=== PATIENT | male | born 1945 | race Caucasian/White ===

== ENCOUNTER → 2018-02-13 | Outpatient (CLI) | payer OTHER | END | disposition home or self-care (01) | LOC: C.LABSPEC 17:09 | PROVIDERS: ATTEND Podiatrist Foot & Ankle Surgery | DX: L97.519 Non-pressure chronic ulcer of other part of right foot with unspecified severity (principal) ==

== ENCOUNTER 2018-02-18 17:02 | Inpatient (IN) | payer OTHER ==
[~2018-02-18] VITALS: Ht 180.3 cm; Wt 115.9 kg
[2018-02-18 18:11] VITALS: BP 136/91; PULSE 90; TEMP 36.9; O2SAT 94; BMI 35.6
[2018-02-18] MEDS ORDERED: ALUMINUM/MAGNESIUM/SIMETH (MAALOX MAX) 30 ML UDC PO PRN (19:45)
[2018-02-18] MEDS ORDERED: POLYETHYLENE (MIRALAX) 17 GM PACK PO PRN (19:45)
[2018-02-18] MEDS ORDERED: LORAZEPAM 0.5 MG TAB PO PRN (19:45)
[2018-02-18] MEDS ORDERED: ACETAMINOPHEN 325 MG TAB PO PRN (19:45)
[2018-02-18] MEDS ORDERED: ONDANSETRON INJ 2 MG/ML 2 ML VIAL IV PRN (19:45)
[2018-02-18] MEDS ORDERED: PATIENT'S ALLERGY INFO NEEDS ENTERED STA (19:52)
[2018-02-18] MEDS ORDERED: MoRPHine SULFATE 4 MG/ML 1 ML CARP\\VIAL IV PRN (20:00)
--- NOTE | 2018-02-18 20:07 | History and Physical ---
History & Physical Date & Time of Service: Feb 18, 2018 at 19:51 Chief Complaint: Right Third Toe Osteomyelitis Primary Care Physician: Taniya Lucero D.O. History of Present Illness There is a first admission had any for the 72-year-old male who comes in with osteo-myelitis of his right distal third toe. This is a diabetic foot infection. He is usually cared for by Dr. Cosme an outpatient MRI did show osteomyelitis involving that toe he gets his care both Dr. Cosme, the [facility], and the family physician in the [place] area. Patient also sees wound care chronically for a open area on his back that was results from previous low back surgery. Patient suffers from Charcot joint of both feet and is wearing podiatric prosthetic devices to walk. Patient's had increasing pain redness and drainage from his right third toe the pain does radiate up to the midfoot he has had no fevers or chills at home he has headaches issues controlling his blood sugar as he is diabetic Preoperatively the patient's had no chest pain pressure shortness of breath orthopnea or previous difficulties with surgery. He has previously had open heart surgery with a aortic valve replacement and mitral valve repair Past Medical/Surgical History Medical Problems: (1) Diabetic foot infection Family History Family history diabetes Social History Smoking Status: Former Smoker Smokeless Tobacco Use: Patient quit smokeless tobacco 30 years ago Review of Systems ROS: well nourished well developed. No double vision blurry vision No problems with speech or swallowing No palpitations, chest pain or pressure No Wheezing or breathing issues No abdominal pain nausea vomiting diarrhea changes in appetite or weight No burning urine urine frequency or changes in color Patient had focal pain to his right third toe with pain to the midfoot redness drainage and swelling No skin rashes or oral lesions No unusual bruising or bleeding No focused back pain or numbness or loss of strength No changes in memory or confusion Physical Exam Vital Signs Date Time Temp Pulse Resp B/P (MAP) Pulse Ox O2 Delivery O2 Flow Rate FiO2 02/18/18 18:11 36.9 90 16 136/91 94 Room Air General Appearance: WD/WN, + mild distress Head: normocephalic, atraumatic Eyes: normal inspection, sclerae normal ENT: hearing grossly normal, pharynx normal Respiratory/Chest: chest non-tender, lungs clear, normal breath sounds Cardiovascular: regular rate, rhythm, no murmur (Although history of valvular repair I hear no murmurs tonight) Abdomen/GI: normal bowel sounds, non tender, soft Back: no CVA tenderness, no muscle spasm, + pertinent finding (There is a deep groove in his lumbar surgical site with an erythematous base with dressing in place which he says he packed with iodoform gauze and sees wound clinic for) Extremities/Musculoskelatal: + pertinent finding (Charcot deformity of both ankles left being worse, his third toe is open on the end with erythema and tenderness) Neurologic/Psych: alert, oriented x 3, + pertinent finding (Patient has no neuropathy according to him) Diagnostics Diagnostic Radiology IMPRESSION: 1. Findings consistent with osteomyelitis of the distal phalanx of the third toe with surrounding cellulitis. No convincing osteomyelitis of the middle phalanx of the third toe. 2. Intraosseous ganglion in the base of the first metatarsal. Questionable nondisplaced fracture associated with the base of the first metatarsal versus reactive degenerative change. Impression Assessment and Plan 72-year-old male with a diabetic foot infection with confirmed osteomyelitis on imaging For the ostomy last patient is on vancomycin and cefepime with renal dose adjustments as needed blood cultures were obtained infectious disease may be involved a PICC line is in the plans for home administration of antibiotics after surgery is done Diabetes, patient states takes Lantus 25 but cannot remember sliding scale he will be given 25 of Lantus in the evening of admission his blood glucose is greater than 300 will continue with sliding scale and carb coverage if he is eating postoperatively will maintain his Lantus to 25 if not will reduce by 50%. Cardiology will continue metoprolol and amiodarone, check ECG restless legs, sinemet, gabapentin mechanical DVT prevention Advanced Directives Existing Living Will: Yes Existing Power of Security Operations Engineer: No Resuscitation Status VTE Prophylaxis Will order VTE Prophylaxis: Yes Reason for no VTE drug order: Contraindicated (Patient on mechanical means due to the fact that surgery is pending)
[2018-02-18] MEDS ORDERED: SODIUM CHLORIDE 0.9% 1000ML 1,000 ML IV SCH (20:30)
[2018-02-18] MEDS ORDERED: VANCOMYCIN CONSULT ACTIVE SCH (20:35)
[2018-02-18 20:44] LABS: BASO % 0.7 %; BASO ABS # 0.06 K/uL (0-0.2); EOS % 2.2 %; EOS ABS # 0.18 K/uL (0-0.5); HEMATOCRIT 45.6 % (42-52); HEMOGLOBIN 15.2 g/dL (14.0-18.0); IG# 0.02 K/uL (0.00-0.02); LYMPH % 22.7 %; LYMPH ABS # 1.83 K/uL (1.2-3.4); MEAN CELL VOLUME 87.4 fL (80-100); MEAN CORPUSCULAR HEMOGLOBIN 29.1 pg (25-34); MEAN CORPUSCULAR HGB CONC 33.3 g/dl (32-36); MEAN PLATELET VOLUME 11.7 fL (7.4-10.4); MONO ABS # 0.81 K/uL (0.11-0.59); NEUT % 64.2 %; NEUT ABS # 5.16 K/uL (1.4-6.5); PLATELET COUNT 311 K/uL (130-400); RED CELL DISTRIBUTION WIDTH CV 13.8 % (11.5-14.5); RED CELL DISTRIBUTION WIDTH SD 44.5 fL (36.4-46.3); WHITE BLOOD COUNT 8.06 K/uL (4.8-10.8)
[2018-02-18] MEDS ORDERED: CEFEPIME CONSULT ACTIVE PRN (20:45)
[2018-02-18] MEDS ORDERED: INSULIN ASPART 100 UNITS/ML 3 ML PEN SC SCH (21:00)
[2018-02-18] MEDS ORDERED: VANCOMYCIN IV 2,750 MG in SODIUM CHLORIDE 0.9% 500ML 500 ML IV SCH (21:00)
[2018-02-18] MEDS ORDERED: DEXTROSE 50% 50 ML SYR IV PRN (21:15)
[2018-02-18] MEDS ORDERED: GLUCAGON FOR INJ 1 MG VIAL SQ PRN (21:15)
[2018-02-18] MEDS ORDERED: GLUCOSE 40% GEL 15 GM TUBE PO PRN (21:15)
[2018-02-18] MEDS ORDERED: GLUCOSE 10 TABS/TUBE PO PRN (21:15)
[2018-02-18 21:24] LABS: CREATININE 1.36 mg/dl (0.60-1.40); POTASSIUM 4.3 mmol/L (3.5-5.1)
[2018-02-18] MEDS: CEFEPIME IV 2,000 MG in SYRINGE 7.5 ML IV SCH (21:24)
[2018-02-18] MEDS: CARBIDOPA/LEVODOPA 25/100MG TAB PO SCH (21:42)
[2018-02-18] MEDS: GABAPENTIN 400 MG CAP PO SCH (21:42)
[2018-02-18] MEDS: INSULIN GLARGINE SOLOSTAR 100 UNITS/ML 3 ML PEN SC SCH (21:50)
[2018-02-18] MEDS: OXYCODONE HCL IR 5 MG TAB (IMMEDIATE RELEASE) PO PRN (21:55)
[2018-02-18] MEDS ORDERED: CEFEPIME IV 2,000 MG in DEXTROSE 5% 100ML 100 ML IV SCH (22:00)
[2018-02-18 22:55] VITALS: BP 144/91; PULSE 84; TEMP 36.5; O2SAT 96
[2018-02-18] MEDS ORDERED: NURSING DECISION MEDICATION ORDER SCH (23:45)
[2018-02-19] VITALS (11 sets, daily range): BP systolic 121–145; BP diastolic 78–93; PULSE 65–78; TEMP 36.4–36.9; O2SAT 93–96; Ht 180.3 cm; Wt 115.9 kg
[2018-02-19] MEDS: OXYCODONE HCL IR 5 MG TAB (IMMEDIATE RELEASE) PO PRN ×2 (03:54→16:17)
[2018-02-19] MEDS: CEFEPIME IV 2,000 MG in SYRINGE 7.5 ML IV SCH ×3 (03:54→21:04)
[2018-02-19] MEDS: INSULIN ASPART 100 UNITS/ML 3 ML PEN SC SCH ×5 (06:00→21:31)
[2018-02-19] MEDS ORDERED: CEFEPIME IV 2,000 MG in SYRINGE 7.5 ML IV SCH (06:00)
[2018-02-19] MEDS: CARBIDOPA/LEVODOPA 25/100MG TAB PO SCH ×2 (07:58→21:05)
[2018-02-19] MEDS: METOPROLOL SUCC 25MG EXT REL TAB PO SCH (07:59)
[2018-02-19] MEDS: AMIODARONE 200 MG TAB PO SCH (07:59)
[2018-02-19] MEDS: GABAPENTIN 400 MG CAP PO SCH ×3 (08:00→21:04)
[2018-02-19 08:27] LABS: HEMATOCRIT 40.6 % (42-52); HEMOGLOBIN 13.8 g/dL (14.0-18.0); MEAN CELL VOLUME 88.6 fL (80-100); MEAN CORPUSCULAR HEMOGLOBIN 30.1 pg (25-34); MEAN PLATELET VOLUME 9.4 fL (7.4-10.4); PLATELET COUNT 292 K/uL (130-400); RED CELL DISTRIBUTION WIDTH CV 13.6 % (11.5-14.5); RED CELL DISTRIBUTION WIDTH SD 43.9 fL (36.4-46.3); WHITE BLOOD COUNT 8.52 K/uL (4.8-10.8)
--- NOTE | 2018-02-19 08:37 | HISTORY & PHYSICAL EXAMINATION ---
DATE OF ADMISSION: 02/18/2018 HISTORY OF PRESENT ILLNESS: A 72-year-old male was seen in my office last evening for cellulitis and osteomyelitis of the third toe. He initially came to me as patient in [facility] from [facility] for [facility]. He had been treated at the [facility] for Charcot arthropathy. At the time of the initial visit, the patient had an ulceration to the distal aspect of the third toe. There has been no radiological evidence, however, we have been waiting for the MRI approval through the [facility] which came through and yesterday showing acute osteomyelitis. The patient was admitted and started on IV antibiotics. Denies fevers, chills and night sweats. He notes increased pain and tenderness the past few days over the third toe. PAST SURGICAL HISTORY: Open heart surgery, aortic valve replacement and mitral valve repair. PAST MEDICAL HISTORY: Hypertension, diabetes mellitus, thyroid, back problems. MEDICATIONS: Per chart. ALLERGIES: No known medical allergies. SOCIAL HISTORY: Smoking history; currently not smoking, had a history of 10 pack years, quit approximately 27 years ago. REVIEW OF SYSTEMS: Unremarkable except chief complaint. PHYSICAL EXAMINATION: VITAL SIGNS: Afebrile. EXTREMITY: Lower extremities, dorsalis pedis pulse on the left 1/4. The right dorsalis pedis and bilateral posterior tibial pulses 0/4 bilaterally. Digital hair is absent. DERMATOLOGIC: There is an ulceration, plantar medial aspect of the left arch which is preulcerative. There is a right third distal ulceration tracking. There is no exposed bone or tendon. Severe erythematous with serous drainage, redness has not crossed the metatarsophalangeal joint area. NEUROLOGIC: Epicritic sensation per [place] monofilament 5.07 absent. MUSCULOSKELETAL: Clinical findings consolidation was stabilization of the fusion involved fragments dislocation, subluxation, consistent with Charcot arthropathy noted. There is a PIPJ contracture noted 2 through 5 and the DIP joint contracture noted to the third right digit. IMAGING: MRI on 02/18/2018 shows findings consistent with osteomyelitis, distal phalanx, third toe, surrounding cellulitis, no convincing evidence of the middle phalanx of the third toe interosseous ganglion and the base of the first metatarsal, a questionable nondisplaced fracture associated with the base of the metatarsal versus reactive changes. LABORATORY DATA: WBC is 8.06. Random glucose is 348 on admission. Creatinine is 1.36. Blood cultures are pending. IMPRESSION: 1. Acute osteomyelitis, right foot. 2. Insulin-dependent diabetes with neuropathy and history of Charcot arthropathy. 3. Coburn grade 2 ulceration, right third digit. 4. Preulcerative area left mid foot. 5. 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 PLAN: Continue IV antibiotics. PICC line will be placed. Appreciate medicine. Consider ID though would recommend 6 weeks of IV antibiotics due to the length of the ulceration that is present even with good clean resection study showed that 6 weeks of IV antibiotics following amputation improve outcomes. The patient is a high risk candidate specifically with peripheral vascular disease, neuropathy and diabetes. The patient will go to the OR today for an amputation of the right third digit. We discussed procedure, risks and complications, reviewed with the patient. Consent form was signed and foot diagram and illustration given in all their entirety. All the patient's questions were answered. Complications were discussed in detail with the patient including pain, infection, swelling that may or may not be excessive, pins and needles feeling, numbness, metatarsalgia, excessive bleeding, delay or nonhealing of bone, delay or nonhealing of skin, enlarged scar, failure of the procedure, recurrence or worsening condition which may or may not require further surgery, adverse reaction to anesthesia, allergic reaction to suture or implant material, loss of toe or foot more proximally and/or leg, transfer lesion, flail toe, short toe, elevated toe, peripheral neurovascular complications such as phlebitis, damage to nerves or vascular structures, significant chronic pain, chronic nerve pain, damage, and general medical complications. The patient will be required to be in a surgery shoe for minimal for 6 weeks and most likely will need a PICC line placed for IV antibiotics during this time. Consent form was signed with a copy of foot diagram issued to the patient. We discussed resection at the PIP joint to assure that there was no further spread of the osteo as well as the continued joint contracture leading to problems in the future. The patient is amenable to this. The patient is commercial correspondent to the OR for an amputation, right third digit at the PIP joint level.
[2018-02-19] MEDS ORDERED: LIDOCAINE HCL 2% 2 ML VIAL (20MG/ML) ONE (08:52)
[2018-02-19] MEDS ORDERED: PROPOFOL IV EMULSION 10 MG/ML 20 ML VIAL IV ONE (08:52)
[2018-02-19] MEDS ORDERED: FENTANYL CITRATE INJ 50 MCG/1 ML 2 ML VIAL ONE (08:52)
[2018-02-19] MEDS ORDERED: MIDAZOLAM HCL 1 MG/ML 2ML VIAL ONE (08:52)
[2018-02-19] MEDS ORDERED: ONDANSETRON INJ 2 MG/ML 2 ML VIAL ONE (08:52)
[2018-02-19] MEDS ORDERED: DEXAMETHASONE SOD INJ 4 MG/ML VIAL ONE (08:52)
[2018-02-19 08:55] LABS: CALCIUM 8.6 mg/dl (8.5-10.1); CREATININE 1.29 mg/dl (0.60-1.40); POTASSIUM 3.7 mmol/L (3.5-5.1)
[2018-02-19] MEDS ORDERED: BACITRACIN 50000 UNIT VIAL ONE (08:56)
[2018-02-19] MEDS ORDERED: BUPIVACAINE 0.5 % 5 MG/1 ML MPF 30ML VIAL ONE (08:57)
[2018-02-19] MEDS ORDERED: FENTANYL CITRATE INJ 50 MCG/1 ML 2 ML VIAL IV PRN (09:15)
[2018-02-19] MEDS ORDERED: ATROPINE SULFATE 0.1 MG/ML 5ML SYR IV PRN (09:15)
[2018-02-19] MEDS ORDERED: EpHEDrine SULFATE INJ 50 MG/ML AMP IV PRN (09:15)
[2018-02-19] MEDS ORDERED: ONDANSETRON INJ 2 MG/ML 2 ML VIAL IV PRN ×2 (09:15→15:30)
--- NOTE | 2018-02-19 09:41 | Pharmacy Progress Note ---
Pharmacy Antibiotic Consult Date of Service: Feb 19, 2018. Pharmacy Dosing Scope Pharmacy is consulted to initiate Vancomycin and cefepime IV dosing therapy, order appropriate labs and adjust drug dose/frequency. Subjective The patient is a 72 year old male admitted on Feb 18, 2018 at 17:50. Objective Height (Feet): 5 Height (Inches): 11.00 Weight (Kilograms): 115.900 Lab Results (24hrs): Test 02/18/18 20:26 02/18/18 23:56 02/19/18 06:02 02/19/18 08:08 White Blood Count 8.06 K/uL (4.8-10.8) 8.52 K/uL (4.8-10.8) Red Blood Count 5.22 M/uL (4.7-6.1) 4.58 M/uL (4.7-6.1) Hemoglobin 15.2 g/dL (14.0-18.0) 13.8 g/dL (14.0-18.0) Hematocrit 45.6 % (42-52) 40.6 % (42-52) Mean Corpuscular Volume 87.4 fL (80-100) 88.6 fL (80-100) Mean Corpuscular Hemoglobin 29.1 pg (25-34) 30.1 pg (25-34) Mean Corpuscular Hemoglobin Concent 33.3 g/dl (32-36) 34.0 g/dl (32-36) Platelet Count 311 K/uL (130-400) 292 K/uL (130-400) Mean Platelet Volume 11.7 fL (7.4-10.4) 9.4 fL (7.4-10.4) Neutrophils (%) (Auto) 64.2 % Lymphocytes (%) (Auto) 22.7 % Monocytes (%) (Auto) 10.0 % Eosinophils (%) (Auto) 2.2 % Basophils (%) (Auto) 0.7 % Neutrophils # (Auto) 5.16 K/uL (1.4-6.5) Lymphocytes # (Auto) 1.83 K/uL (1.2-3.4) Monocytes # (Auto) 0.81 K/uL (0.11-0.59) Eosinophils # (Auto) 0.18 K/uL (0-0.5) Basophils # (Auto) 0.06 K/uL (0-0.2) RDW Standard Deviation 44.5 fL (36.4-46.3) 43.9 fL (36.4-46.3) RDW Coefficient of Variation 13.8 % (11.5-14.5) 13.6 % (11.5-14.5) Immature Granulocyte % (Auto) 0.2 % Immature Granulocyte # (Auto) 0.02 K/uL (0.00-0.02) Sodium Level 133 mmol/L (136-145) 136 mmol/L (136-145) Potassium Level 4.3 mmol/L (3.5-5.1) 3.7 mmol/L (3.5-5.1) Chloride Level 99 mmol/L (98-107) 102 mmol/L (98-107) Carbon Dioxide Level 27 mmol/L (21-32) 28 mmol/L (21-32) Anion Gap 8.0 mmol/L (3-11) 7.0 mmol/L (3-11) Blood Urea Nitrogen 12 mg/dl (7-18) 11 mg/dl (7-18) Creatinine 1.36 mg/dl (0.60-1.40) 1.29 mg/dl (0.60-1.40) Est Creatinine Clear Calc Drug Dose 65.4 ml/min 69.0 ml/min Estimated GFR () 60.7 64.7 Estimated GFR (Non- 52.3 55.8 BUN/Creatinine Ratio 8.8 (10-20) 8.8 (10-20) Random Glucose 348 mg/dl (70-99) 148 mg/dl (70-99) Calcium Level 9.0 mg/dl (8.5-10.1) 8.6 mg/dl (8.5-10.1) Beta-Hydroxybutyric Acid 1.14 mg/dL (0.2-2.81) Bedside Glucose 229 mg/dl (70-99) 140 mg/dl (70-99) Assessment & Plan Assessment 72 [facility]omyelitis/diabetic foot infection. * PMH of DM * Blood cultures pending Plan Vancomycin * Loading dose: 2750mg (23.7mg/kg) IV x 1, then * Maintenance dose: 1750mg (15mg/kg) IV q 16 hours. * Goal trough for osteomyelitis: 15-20mcg/mL * Trough level ordered for 02/21 @1000 Cefepime * 2 gm IV q 8 hours Pharmacy will continue to follow and will adjust dose/frequency as necessary. Thank you
[2018-02-19] MEDS ORDERED: PHENYLEPHRINE HCL INJ 10 MG/ML VIAL ONE (09:56)
--- NOTE | 2018-02-19 10:17 | [facility] Operative Report ---
Operative Report Operative Date Feb 19, 2018. Pre-Operative Diagnosis Osteomyelitis Right third toe Post-Operative Diagnosis Osteomyelitis Right third toe Procedure(s) Performed Amputation Right 3rd Digit Proximal Interphalangeal Joint Right Surgeon Dr. Kothari Pesticide Applicator Surgeon(s) none Estimated Blood Loss < 5 ML Specimens A. Right 3rd toe Cultures: 1. Right third Toe Amputation site 2. Right third Toe Wound Anesthesia Type General I attest to the content of the Intraoperative Record and any orders documented therein. Any exceptions are noted below.
--- NOTE | 2018-02-19 10:39 | OPERATIVE REPORT ---
DATE OF OPERATION: 02/19/2018 SURGEON: Dr. Kothari. PREOPERATIVE DIAGNOSES: 1. Osteomyelitis distal phalanx, right third. 2. Digital contracture right third with clawing. 3. Subluxation right third metatarsophalangeal joint. 4. Cellulitis, right foot. POSTOPERATIVE DIAGNOSES: Same. PROCEDURES: 1. Amputation right third PIP joint level. 2. Metatarsophalangeal joint release, right third. HEMOSTASIS: None. HISTOPATHOLOGY: Specimen sent. Culture of the amp site following irrigation and culture of the wound prior to irrigation. ESTIMATED BLOOD LOSS: Less than 5 mL IRRIGATION: 3000 units with bacitracin. MATERIALS: 2-0 Vicryl, 3-0 nylon. COMPLICATIONS: None. The patient tolerated the procedure and anesthesia well without complications, transported to the recovery room with vital signs stable and neurovascular status intact. PROCEDURE IN DETAIL: The patient was admitted last night and started on empiric antibiotics. Consent was reviewed and all questions were answered. The patient was brought to the OR and placed on the OR table in supine position. Upon completion of general anesthesia by the anesthesia department, a local field block was performed with 30 mL 0.5% Marcaine plain to the forefoot on the right. The foot was scrubbed, prepped and draped in the usual aseptic fashion. Attention was directed to the right third digit where at the proximal phalange joint level, an elliptical incision was made, excising the distal and middle phalanx due to the DIP joint contracture. This was removed from the site in toto. It should be noted that a culture was taken of the wound deep over this area. After its excision, the area was irrigated with 3000 units of normal saline with bacitracin. The metatarsophalangeal joint was released at the MTP joint level, relaxing the remaining proximal interphalangeal joint. Wound was again copiously lavaged. Closure began in the deep structures using 2-0 Vicryl. Superficial deep structures closed using 3-0 nylon. Dry sterile compressive dressing consisting of Adaptic, 4 x 4's, Kerlix and an Nikolay was applied. The patient tolerated the procedure and anesthesia well without complications and was transported to the recovery room with vital signs stable and neurovascular status intact, was readmitted to the floor for continued IV antibiotics. Recommend 6 weeks of IV antibiotics via PICC line, will consult home health to arrange. I attest to the content of the Intraoperative Record and any orders documented therein. Any exception s are noted below.
--- NOTE | 2018-02-19 10:43 | DIAGNOSTIC IMAGING REPORT ---
INTRAOPERATIVE RIGHT THIRD TOE 2 VIEWS CLINICAL HISTORY: Right third toe amputation COMPARISON STUDY: No previous studies for comparison. FINDINGS: 2 intraoperative fluoroscopic spot images are provided for interpretation. 3 seconds of fluoroscopic time was utilized. There are postsurgical changes of an amputation at the level of the proximal interphalangeal joint of the third toe. IMPRESSION: Postsurgical changes of an amputation at the level of the proximal interphalangeal joint. Electronically signed by: Mayank Sapp M.D. 02/19/2018 10:41 AM Dictated Date/Time: 02/19/2018 10:40 AM
--- NOTE | 2018-02-19 11:04 | Anesthesiology Progress Note ---
Anesthesia Post Op Note Date & Time Feb 19, 2018 at 11:04 Vital Signs Pain Intensity: 0 Vital Signs Past 12 Hours Date Time Temp Pulse Resp B/P (MAP) Pulse Ox O2 Delivery O2 Flow Rate FiO2 02/19/18 10:50 65 16 109/78 93 Room Air 02/19/18 10:40 64 19 119/76 100 Oxymask 10 02/19/18 10:30 67 15 124/82 100 Oxymask 10 02/19/18 10:22 36.2 68 18 135/93 100 Oxymask 10 02/19/18 07:43 94 Room Air 02/19/18 07:40 36.5 74 20 121/80 (94) 94 Room Air 02/19/18 07:20 Room Air 02/18/18 23:15 Room Air Notes Mental Status: alert / awake / arousable, participated in evaluation Pt Amnestic to Procedure: Yes Nausea / Vomiting: adequately controlled Pain: adequately controlled Airway Patency, RR, SpO2: stable & adequate BP & HR: stable & adequate Hydration State: stable & adequate Anesthetic Complications: no major complications apparent
[2018-02-19] MEDS: ATORVASTATIN 40 MG TAB PO SCH (11:41)
--- NOTE | 2018-02-19 11:41 | Family Medicine Progress Note ---
Progress Note Date of Service Feb 19, 2018. Subjective Pt evaluation today including: conversation w/ patient, physical exam, chart review, lab review Pain: Well-controlled PO Intake: Good Voiding: no voiding problems Constitutional: No fever, No chills Eyes: No worsening of vision ENT: No hearing loss Respiratory: No cough, No sputum Cardiovascular: No chest pain Abdomen: No pain, No nausea, No vomiting Musculoskeletal: No joint pain Male : No dysuria Psychiatric: No depression symptoms Medications Current Inpatient Medications Medications (Trade) Dose Ordered Sig/Kaur Route Start Time Stop Time Status Last Admin Dose Admin Acetaminophen (Tylenol Tab) 650 mg Q4H PRN PO 02/18/18 19:45 03/20/18 19:44 Al Hydrox/Mg Hydrox/Simethicone (Maalox Max Susp) 15 ml Q4H PRN PO 02/18/18 19:45 03/20/18 19:44 Polyethylene (Miralax Powder Packet) 17 gm DAILY PRN PO 02/18/18 19:45 03/20/18 19:44 Ondansetron HCl (Zofran Inj) 4 mg Q6H PRN IV 02/18/18 19:45 03/20/18 19:44 Lorazepam (Ativan Tab) 0.5 mg Q6 PRN PO 02/18/18 19:45 03/20/18 19:44 Metoprolol Succinate (Toprol Xl Tab) 25 mg QAM PO 02/19/18 09:00 03/21/18 08:59 02/19/18 07:59 25 MG Amiodarone HCl (Cordarone Tab) 100 mg QAM PO 02/19/18 09:00 03/21/18 08:59 02/19/18 07:59 100 MG Gabapentin (Neurontin Cap) 400 mg TID PO 02/18/18 21:00 03/20/18 20:59 02/19/18 13:49 400 MG Carbidopa/Levodopa (Sinemet 25/ 100MG Tab) 1 tab BID PO 02/18/18 21:00 03/20/18 20:59 02/19/18 07:58 1 TAB Atorvastatin Calcium (Lipitor Tab) 40 mg QAM PO 02/19/18 09:00 03/21/18 08:59 02/19/18 11:41 40 MG Insulin Glargine (Lantus Solostar Pen) 25 units QPM SC 02/18/18 21:00 03/20/18 20:59 02/18/18 21:50 25 UNITS Miscellaneous Information (Consult) 1 ea UD N/A 02/18/18 20:35 03/20/18 20:34 Morphine Sulfate (MoRPHine SULFATE INJ) 2 mg Q4H PRN IV 02/18/18 20:00 03/04/18 19:59 02/19/18 15:33 2 MG Morphine Sulfate (MoRPHine SULFATE INJ) 4 mg Q4H PRN IV 02/18/18 20:00 03/04/18 19:59 Oxycodone HCl (Roxicodone Immediate Rel Tab) 10 mg Q6 PRN PO 02/18/18 20:15 03/04/18 20:14 02/19/18 16:17 10 MG Cefepime HCl 2000 mg/Syringe 20 ml @ 5 mls/min Q8@0400,1200,2000 IV 02/18/18 20:39 04/01/18 20:38 02/19/18 11:44 5 MLS/MIN Cefepime HCl (Consult) 1 ea UD PRN N/A 02/18/18 20:45 03/20/18 20:44 Glucose (Glucose 40% Gel) 15-30 GRAMS 15 GRAMS... UD PRN PO 02/18/18 21:15 03/20/18 21:14 Glucose (Glucose Chew Tab) 4-8 Tablets 4 Tabl... UD PRN PO 02/18/18 21:15 03/20/18 21:14 Dextrose (Dextrose 50% 50ML Syringe) 25-50ML OF 50% DW IV FOR... UD PRN IV 02/18/18 21:15 03/20/18 21:14 Glucagon (Glucagon Inj) 1 mg UD PRN SQ 02/18/18 21:15 03/20/18 21:14 Insulin Aspart (novoLOG ASPART) SLIDING SCALE PARAMETER Q6 SC 02/19/18 00:00 03/21/18 00:00 02/19/18 12:38 3 UNITS Vancomycin HCl 1750 mg/Sodium Chloride 535 ml @ 200 mls/hr Q16H IV 02/19/18 10:00 04/01/18 21:59 02/19/18 11:44 200 MLS/HR Ondansetron HCl (Zofran Inj) 4 mg ONE PRN IV 02/19/18 15:30 02/19/18 20:30 Objective Vital Signs Date Time Temp Pulse Resp B/P (MAP) Pulse Ox O2 Delivery O2 Flow Rate FiO2 02/19/18 15:16 36.9 69 18 135/88 (104) 95 Room Air 02/19/18 14:14 36.7 68 20 127/80 (96) 96 Room Air 02/19/18 13:15 36.5 66 22 123/80 (94) 94 Room Air 02/19/18 12:15 36.5 68 16 129/78 (95) 95 Room Air 02/19/18 12:12 36.4 67 18 131/82 (98) 94 Room Air 02/19/18 11:45 36.4 68 20 130/87 (101) 95 Room Air 02/19/18 11:15 Room Air 02/19/18 11:15 36.7 65 18 125/80 (95) 94 Room Air 02/19/18 11:15 Room Air 02/19/18 11:00 36.8 64 16 117/77 97 Room Air 02/19/18 10:50 65 16 109/78 93 Room Air 02/19/18 10:40 64 19 119/76 100 Oxymask 10 02/19/18 10:30 67 15 124/82 100 Oxymask 10 02/19/18 10:22 36.2 68 18 135/93 100 Oxymask 10 02/19/18 07:43 94 Room Air 02/19/18 07:40 36.5 74 20 121/80 (94) 94 Room Air 02/19/18 07:20 Room Air 02/18/18 23:15 Room Air 02/18/18 22:55 36.5 84 18 144/91 (108) 96 Room Air 02/18/18 18:11 36.9 90 16 136/91 94 Room Air Physical Exam General Appearance: WD/WN, no apparent distress Eyes: normal inspection ENT: hearing grossly normal Neck: supple Respiratory/Chest: normal breath sounds, no respiratory distress Cardiovascular: regular rate, rhythm Abdomen: normal bowel sounds, non tender, soft Extremities: no calf tenderness, + pertinent finding (Right lower extremity covered in dressing status post toe amputation) Neurologic/Psychiatric: alert, normal mood/affect, oriented x 3 Laboratory Results 02/19/18 08:08 02/19/18 08:08 Test 02/18/18 20:26 02/19/18 08:08 02/19/18 10:33 Immature Granulocyte % (Auto) 0.2 % White Blood Count 8.06 K/uL (4.8-10.8) Red Blood Count 5.22 M/uL (4.7-6.1) 4.58 M/uL (4.7-6.1) Hemoglobin 15.2 g/dL (14.0-18.0) Hematocrit 45.6 % (42-52) Mean Corpuscular Volume 87.4 fL (80-100) 88.6 fL (80-100) Mean Corpuscular Hemoglobin 29.1 pg (25-34) 30.1 pg (25-34) Mean Corpuscular Hemoglobin Concent 33.3 g/dl (32-36) 34.0 g/dl (32-36) Platelet Count 311 K/uL (130-400) Mean Platelet Volume 11.7 fL (7.4-10.4) 9.4 fL (7.4-10.4) Neutrophils (%) (Auto) 64.2 % Lymphocytes (%) (Auto) 22.7 % Monocytes (%) (Auto) 10.0 % Eosinophils (%) (Auto) 2.2 % Basophils (%) (Auto) 0.7 % Neutrophils # (Auto) 5.16 K/uL (1.4-6.5) Lymphocytes # (Auto) 1.83 K/uL (1.2-3.4) Monocytes # (Auto) 0.81 K/uL (0.11-0.59) Eosinophils # (Auto) 0.18 K/uL (0-0.5) Basophils # (Auto) 0.06 K/uL (0-0.2) Immature Granulocyte # (Auto) 0.02 K/uL (0.00-0.02) Beta-Hydroxybutyric Acid 1.14 mg/dL (0.2-2.81) RDW Standard Deviation 43.9 fL (36.4-46.3) RDW Coefficient of Variation 13.6 % (11.5-14.5) Anion Gap 7.0 mmol/L (3-11) Est Creatinine Clear Calc Drug Dose 69.0 ml/min Estimated GFR () 64.7 Estimated GFR (Non- 55.8 BUN/Creatinine Ratio 8.8 (10-20) Calcium Level 8.6 mg/dl (8.5-10.1) Hepatitis C Antibody Screen NEG (NEG) Bedside Glucose 145 mg/dl (70-99) Assessment and Plan 72-year-old male with a past medical history of diabetic foot ulcer, coronary artery disease presented with confirmed osteomyelitis as evidenced by MRI of his right distal third toe. He underwent amputation of the affected toe this morning. Osteomyelitis of right foot distal third toe: As evidenced on MRI -Status post amputation of right third PIP joint level and metatarsophalangeal joint release, right third. -Blood cultures and wound cultures currently pending - Continue vancomycin and cefepime -He will need antibiotics for 6 weeks and will need a PICC line placement - The patient will be required to be in a surgery shoe for minimal for 6 weeks Diabetes mellitus type 2: Continue Lantus with insulin sliding scale Coronary artery disease: - Continue metoprolol and amiodarone Diabetic neuropathy: Continue gabapentin Restless legs: -Continue Sinemet DVT prophylaxis -SCDs Full code Resident Physician Supervision Note: I interviewed and examined the patient. Discussed with Dr. Templeton and agree with findings and plan as documented in the note. Any exceptions or clarifications are listed here: None Documented By: Farhan Sidhu feeling ok post op wants to do IV abx at home if possible vitals noted nad breathing unlabored foot osteomyelitis - post op and IV abx, ongoing abx based on cultures, ID and podiatry input Resident Tracking Resident Involvement: Resident Care Provided Care Provided: Adult Hospital Medicine
[2018-02-19] MEDS: VANCOMYCIN IV 1,750 MG in SODIUM CHLORIDE 0.9% 500ML 500 ML IV SCH (11:44)
[2018-02-19] MEDS: MoRPHine SULFATE 2 MG/ML CARP IV PRN (15:33)
[2018-02-19] MEDS ORDERED: NURSING DECISION MEDICATION ORDER SCH (17:45)
[2018-02-19] MEDS: INSULIN GLARGINE SOLOSTAR 100 UNITS/ML 3 ML PEN SC SCH (21:32)
[2018-02-20] MEDS: OXYCODONE HCL IR 5 MG TAB (IMMEDIATE RELEASE) PO PRN ×4 (00:18→23:52)
[2018-02-20] MEDS: VANCOMYCIN IV 1,750 MG in SODIUM CHLORIDE 0.9% 500ML 500 ML IV SCH ×2 (02:30→18:26)
[2018-02-20 03:35] VITALS: BP 101/65; PULSE 62; TEMP 36.4; O2SAT 94
[2018-02-20] MEDS: CEFEPIME IV 2,000 MG in SYRINGE 7.5 ML IV SCH ×3 (05:16→20:19)
[2018-02-20 07:25] VITALS: BP 142/80; PULSE 61; TEMP 36.4; O2SAT 97
--- NOTE | 2018-02-20 08:17 | PROGRESS NOTE ---
DATE: 02/20/2018 SUBJECTIVE: The patient seen at bedside postoperative day 1. He notes mild amount of pain, it is controllable. Currently nonambulatory, waiting the surgery shoe. OBJECTIVE: VITAL SIGNS: Stable and afebrile. EXTREMITIES: Lower extremity edema noted over the amputation site. Digital pulse nonpalpable on the right lower extremity secondary to the edema. DERMATOLOGIC: Sutures intact. Erythema improved. Mild serosanguineous drainage noted from the operative site. NEUROLOGIC: Epicritic sensation per [place] monofilament decreased MUSCULOSKELETAL: Amputation right third digit PIP joint level. LABORATORY DATA: OR cultures pending. Blood culture no growth to date. WBC is within normal limits on 02/19/2018. IMPRESSION: 1. Status post I&D, amputation right third PIP joint level, MTPJ release, right third digit postoperative day 1. 2. Cellulitis, right foot, improved. TREATMENT: Continue IV antibiotics, awaiting placement of PICC line and approval for IV antibiotics. Spoke with pharmacy yesterday regarding the dosing of the vancomycin. Awaiting peak and trough levels and more finalized empiric culture results. Stop date on the IV antibiotics April 02. Long discussion at bedside regarding 6 weeks of IV antibiotics with the patient. The patient is awaiting home IV infusion. We will work with the NH today to get this approved, then we will dispense a surgery shoe to bedside for ambulation purposes.
[2018-02-20] MEDS: AMIODARONE 200 MG TAB PO SCH (08:55)
[2018-02-20] MEDS: ATORVASTATIN 40 MG TAB PO SCH (08:55)
[2018-02-20] MEDS: INSULIN ASPART 100 UNITS/ML 3 ML PEN SC SCH ×4 (08:56→21:07)
[2018-02-20] MEDS: METOPROLOL SUCC 25MG EXT REL TAB PO SCH (08:57)
[2018-02-20] MEDS: GABAPENTIN 400 MG CAP PO SCH ×3 (08:57→21:09)
[2018-02-20] MEDS: CARBIDOPA/LEVODOPA 25/100MG TAB PO SCH ×2 (08:57→21:09)
[2018-02-20 09:07] LABS: CALCIUM 8.5 mg/dl (8.5-10.1); CREATININE 1.26 mg/dl (0.60-1.40); POTASSIUM 4.1 mmol/L (3.5-5.1)
--- NOTE | 2018-02-20 10:55 | Medical Consult ---
Consultation Date of Consultation: Feb 20, 2018. Attending Physician: Farhan Sidhu D.O. Reason for Consultation: Osteomyelitis History of Present Illness 72-year-old male with longstanding diabetes mellitus with severe diabetic peripheral neuropathy, Charcot changes in both feet, who has been followed by Podiatry for nonhealing ulceration of his right 3rd toe. Over the last week or so, patient noted increasing redness, swelling, and drainage, and MRI was obtained showing osteomyelitis of the toe. Yesterday, patient underwent amputation of the right 3rd toe. Operative Gram stain is negative, cultures are pending. Patient currently being treated with IV vancomycin. He has not had associated fever or chills. Pain currently 3/10 intensity right foot. Past Medical/Surgical History Medical Problems: (1) Diabetic foot infection PAST SURGICAL HISTORY: Open heart surgery, aortic valve replacement and mitral valve repair. PAST MEDICAL HISTORY: Hypertension, diabetes mellitus, thyroid, back problems Family History Noncontributory Social History Smoking Status: Former Smoker Smokeless Tobacco Use: Patient quit smokeless tobacco 30 years ago Allergies Coded Allergies: No Known Allergies (Unverified , 02/18/18) Current Inpatient Medications Current Inpatient Medications Medications (Trade) Dose Ordered Sig/Kaur Route Start Time Stop Time Status Last Admin Dose Admin Acetaminophen (Tylenol Tab) 650 mg Q4H PRN PO 02/18/18 19:45 03/20/18 19:44 Al Hydrox/Mg Hydrox/Simethicone (Maalox Max Susp) 15 ml Q4H PRN PO 02/18/18 19:45 03/20/18 19:44 Polyethylene (Miralax Powder Packet) 17 gm DAILY PRN PO 02/18/18 19:45 03/20/18 19:44 Ondansetron HCl (Zofran Inj) 4 mg Q6H PRN IV 02/18/18 19:45 03/20/18 19:44 Lorazepam (Ativan Tab) 0.5 mg Q6 PRN PO 02/18/18 19:45 03/20/18 19:44 Metoprolol Succinate (Toprol Xl Tab) 25 mg QAM PO 02/19/18 09:00 03/21/18 08:59 02/20/18 08:57 25 MG Amiodarone HCl (Cordarone Tab) 100 mg QAM PO 02/19/18 09:00 03/21/18 08:59 02/20/18 08:55 100 MG Gabapentin (Neurontin Cap) 400 mg TID PO 02/18/18 21:00 03/20/18 20:59 02/20/18 08:57 400 MG Carbidopa/Levodopa (Sinemet 25/ 100MG Tab) 1 tab BID PO 02/18/18 21:00 03/20/18 20:59 02/20/18 08:57 1 TAB Atorvastatin Calcium (Lipitor Tab) 40 mg QAM PO 02/19/18 09:00 03/21/18 08:59 02/20/18 08:55 40 MG Insulin Glargine (Lantus Solostar Pen) 25 units QPM SC 02/18/18 21:00 03/20/18 20:59 02/19/18 21:32 25 UNITS Miscellaneous Information (Consult) 1 ea UD N/A 02/18/18 20:35 03/20/18 20:34 Morphine Sulfate (MoRPHine SULFATE INJ) 2 mg Q4H PRN IV 02/18/18 20:00 03/04/18 19:59 02/19/18 15:33 2 MG Morphine Sulfate (MoRPHine SULFATE INJ) 4 mg Q4H PRN IV 02/18/18 20:00 03/04/18 19:59 02/19/18 20:15 4 MG Oxycodone HCl (Roxicodone Immediate Rel Tab) 10 mg Q6 PRN PO 02/18/18 20:15 03/04/18 20:14 02/20/18 07:03 10 MG Cefepime HCl 2000 mg/Syringe 20 ml @ 5 mls/min Q8@0400,1200,2000 IV 02/18/18 20:39 04/01/18 20:38 02/20/18 05:16 5 MLS/MIN Cefepime HCl (Consult) 1 ea UD PRN N/A 02/18/18 20:45 03/20/18 20:44 Glucose (Glucose 40% Gel) 15-30 GRAMS 15 GRAMS... UD PRN PO 02/18/18 21:15 03/20/18 21:14 Glucose (Glucose Chew Tab) 4-8 Tablets 4 Tabl... UD PRN PO 02/18/18 21:15 03/20/18 21:14 Dextrose (Dextrose 50% 50ML Syringe) 25-50ML OF 50% DW IV FOR... UD PRN IV 02/18/18 21:15 03/20/18 21:14 Glucagon (Glucagon Inj) 1 mg UD PRN SQ 02/18/18 21:15 03/20/18 21:14 Vancomycin HCl 1750 mg/Sodium Chloride 535 ml @ 200 mls/hr Q16H IV 02/19/18 10:00 04/01/18 21:59 02/20/18 02:30 200 MLS/HR Insulin Aspart (novoLOG ASPART) SLIDING SCALE PARAMETER ACHS SC 02/19/18 21:00 03/21/18 00:00 02/20/18 08:56 8 UNITS Review of Systems All systems were reviewed and are negative except as per HPI Physical Exam Date Time Temp Pulse Resp B/P (MAP) Pulse Ox O2 Delivery O2 Flow Rate FiO2 02/20/18 07:25 36.4 61 18 142/80 (100) 97 Room Air 02/20/18 07:00 Room Air 02/20/18 03:35 36.4 62 16 101/65 (77) 94 Room Air 02/20/18 00:15 Room Air 02/19/18 23:10 36.6 78 18 141/87 (105) 93 Room Air 02/19/18 19:30 36.9 78 18 145/93 (110) 95 Room Air 02/19/18 15:28 Room Air 02/19/18 15:16 36.9 69 18 135/88 (104) 95 Room Air 02/19/18 14:14 36.7 68 20 127/80 (96) 96 Room Air 02/19/18 13:15 36.5 66 22 123/80 (94) 94 Room Air 02/19/18 12:15 36.5 68 16 129/78 (95) 95 Room Air 02/19/18 12:12 36.4 67 18 131/82 (98) 94 Room Air 02/19/18 11:45 36.4 68 20 130/87 (101) 95 Room Air 02/19/18 11:15 Room Air 02/19/18 11:15 36.7 65 18 125/80 (95) 94 Room Air 02/19/18 11:15 Room Air 02/19/18 11:00 36.8 64 16 117/77 97 Room Air General Appearance: WD/WN, no apparent distress Head: normocephalic, atraumatic Eyes: normal inspection, EOMI, sclerae normal ENT: normal ENT inspection, hearing grossly normal, pharynx normal Neck: supple, no adenopathy, thyroid normal, trachea midline Respiratory/Chest: chest non-tender, lungs clear, normal breath sounds, no respiratory distress Cardiovascular: regular rate, rhythm, no gallop, no murmur Abdomen/GI: normal bowel sounds, non tender, soft, no organomegaly Back: normal inspection, no CVA tenderness Extremities/Musculoskelatal: no calf tenderness, normal capillary refill, non- tender Neurologic/Psych: alert, oriented x 3, + sensory deficit (Both lower extremities) Skin: normal color, warm/dry, no rash, + pertinent finding (Surgical dressing intact right foot) Lymphatic: no adenopathy Laboratory Results RUN DATE: 02/19/18 [facility] LAB PAGE 1 RUN TIME: 1211 Specimen Inquiry PATIENT: LARRY DELUNA LOC: [facility] U # : [id number] AGE/SX: 72/M ROOM: [facility] REG : 02/18/[address]: Farhan Sidhu D.O. : 1945 BED: 1 DIS : STATUS: ADM IN TLOC: SPEC #: [id number] GORD[place]: 02/19/18 STATUS: RES REQ #: [id number] RECD: 02/19/[address] [facility] [address]: Pavithra Kothari D.P.MSarah SOURCE: DRAIN-DEEP ENTR: 02/19/[address]: Trevon Pedraza M.D. SPDESC: TOE R3 Taniya Lucero D.O., Ryan, D.O. ORDERED: AER/ALISON CULTSMR COMMENTS: CULTURE #1 RIGHT THIRD TOE AMPUTATION SITE Procedure Result Verified Site GRAM STAIN Final 02/19/181211 RESULT MODERATE WBCs SEEN NO ORGANISMS SEEN OR AER/ALISON CULT Results Pending Last 24 Hours Test 02/19/18 12:09 02/19/18 17:13 02/19/18 20:29 02/20/18 07:50 Bedside Glucose 203 mg/dl 293 mg/dl 263 mg/dl Sodium Level 133 mmol/L Potassium Level 4.1 mmol/L Chloride Level 100 mmol/L Carbon Dioxide Level 27 mmol/L Anion Gap 6.0 mmol/L Blood Urea Nitrogen 13 mg/dl Creatinine 1.26 mg/dl Est Creatinine Clear Calc Drug Dose 70.6 ml/min Estimated GFR () 66.5 Estimated GFR (Non- 57.4 BUN/Creatinine Ratio 10.5 Random Glucose 218 mg/dl Calcium Level 8.5 mg/dl Chemistry Specimen Hemolysis Test 02/20/18 08:06 Bedside Glucose 198 mg/dl Patient Name: LARRY DELUNA Unit Number: [id number] Dictated: 02/19/181039 Transcribed: 02/19/181039 ARG Printed Date/Time: [~ rep prt dt]/[~ rep prt tm] [~ rep ct labl] - [~ rep ct ivnm] [facility] Radiology Department [place], [place] [id number] Dictated: 02/19/181039 Transcribed: 02/19/181039 ARG Printed Date/Time: [~ rep prt dt]/[~ rep prt tm] [~ rep ct labl] - [~ rep ct ivnm] [~ rep ct add3]] INTRAOPERATIVE RIGHT THIRD TOE 2 VIEWS CLINICAL HISTORY: Right third toe amputation COMPARISON STUDY: No previous studies for comparison. FINDINGS: 2 intraoperative fluoroscopic spot images are provided for interpretation. 3 seconds of fluoroscopic time was utilized. There are postsurgical changes of an amputation at the level of the proximal interphalangeal joint of the third toe. IMPRESSION: Postsurgical changes of an amputation at the level of the proximal interphalangeal joint. Electronically signed by: Mayank Sapp M.D. 02/19/2018 10:41 AM Dictated Date/Time: 02/19/2018 10:40 AM The status of this report is Signed. Draft = Not yet reviewed or approved by Radiologist. Signed = Reviewed and approved by Radiologist. <AttendingPhy>Thea, Farhan, D.O.</AttendingPhy> <FamilyPhy>Taniya Lucero D.O.</FamilyPhy> <PrimaryPhy>Taniya Lucero D.O.</PrimaryPhy> <UnitNumber> [id number]</UnitNumber> <VisitNumber>[id number]</VisitNumber> <PatientName> LARRY DELUNA</PatientName> <DateOfBirth>1945</DateOfBirth> <Location> [facility]</Location> <ServiceDate></ServiceDate> <MNE>ESINDI</MNE> <OrderingPhy> Pavithra Kothari D.P.M.</OrderingPhy> <OrderingPhyMNE>f rep ord dr villegas</ OrderingPhyMNE> <DictatingPhyMNE>f rep dict dr villegas</DictatingPhyMNE> <CCListMNE> f rep ct mne</CCListMNE> <AdmittingPhyMNE>f pt admit dr villegas</AdmittingPhyMNE> < AttendingPhyMNE>f pt attend dr villegas</AttendingPhyMNE> <ConsultingPhyMNE>f pt consult dr villegas</ConsultingPhyMNE> <FamilyPhyMNE>f pt fam dr villegas</FamilyPhyMNE> <OtherPhyMNE>f pt other dr villegas</OtherPhyMNE> < PrimaryPhyMNE>f pt prim care dr villegas</PrimaryPhyMNE> <ReferringPhyMNE>f pt referring dr villegas</ReferringPhyMNE> Assessment & Plan 72-year-old male with osteomyelitis of the right 3rd toe now status post amputation in the setting of diabetes mellitus and severe peripheral neuropathy and Charcot changes. Agree with plans for prolonged IV antibiotics, choice to be determined by culture results. Hopefully can find a once daily alternative. Will need PICC line. Will follow.
--- NOTE | 2018-02-20 14:31 | Family Medicine Progress Note ---
Progress Note Date of Service Feb 20, 2018. Subjective Pt evaluation today including: conversation w/ patient, physical exam, chart review, lab review Medications Current Inpatient Medications Medications (Trade) Dose Ordered Sig/Kaur Route Start Time Stop Time Status Last Admin Dose Admin Acetaminophen (Tylenol Tab) 650 mg Q4H PRN PO 02/18/18 19:45 03/20/18 19:44 Al Hydrox/Mg Hydrox/Simethicone (Maalox Max Susp) 15 ml Q4H PRN PO 02/18/18 19:45 03/20/18 19:44 Polyethylene (Miralax Powder Packet) 17 gm DAILY PRN PO 02/18/18 19:45 03/20/18 19:44 Ondansetron HCl (Zofran Inj) 4 mg Q6H PRN IV 02/18/18 19:45 03/20/18 19:44 Lorazepam (Ativan Tab) 0.5 mg Q6 PRN PO 02/18/18 19:45 03/20/18 19:44 Metoprolol Succinate (Toprol Xl Tab) 25 mg QAM PO 02/19/18 09:00 03/21/18 08:59 02/20/18 08:57 25 MG Amiodarone HCl (Cordarone Tab) 100 mg QAM PO 02/19/18 09:00 03/21/18 08:59 02/20/18 08:55 100 MG Gabapentin (Neurontin Cap) 400 mg TID PO 02/18/18 21:00 03/20/18 20:59 02/20/18 21:09 400 MG Carbidopa/Levodopa (Sinemet 25/ 100MG Tab) 1 tab BID PO 02/18/18 21:00 03/20/18 20:59 02/20/18 21:09 1 TAB Atorvastatin Calcium (Lipitor Tab) 40 mg QAM PO 02/19/18 09:00 03/21/18 08:59 02/20/18 08:55 40 MG Insulin Glargine (Lantus Solostar Pen) 25 units QPM SC 02/18/18 21:00 03/20/18 20:59 02/20/18 21:08 25 UNITS Miscellaneous Information (Consult) 1 ea UD N/A 02/18/18 20:35 03/20/18 20:34 Morphine Sulfate (MoRPHine SULFATE INJ) 2 mg Q4H PRN IV 02/18/18 20:00 03/04/18 19:59 02/20/18 17:53 2 MG Morphine Sulfate (MoRPHine SULFATE INJ) 4 mg Q4H PRN IV 02/18/18 20:00 03/04/18 19:59 02/19/18 20:15 4 MG Oxycodone HCl (Roxicodone Immediate Rel Tab) 10 mg Q6 PRN PO 02/18/18 20:15 03/04/18 20:14 02/21/18 06:28 10 MG Cefepime HCl 2000 mg/Syringe 20 ml @ 5 mls/min Q8@0400,1200,2000 IV 02/18/18 20:39 04/01/18 20:38 02/21/18 03:59 5 MLS/MIN Cefepime HCl (Consult) 1 ea UD PRN N/A 02/18/18 20:45 03/20/18 20:44 Glucose (Glucose 40% Gel) 15-30 GRAMS 15 GRAMS... UD PRN PO 02/18/18 21:15 03/20/18 21:14 Glucose (Glucose Chew Tab) 4-8 Tablets 4 Tabl... UD PRN PO 02/18/18 21:15 03/20/18 21:14 Dextrose (Dextrose 50% 50ML Syringe) 25-50ML OF 50% DW IV FOR... UD PRN IV 02/18/18 21:15 03/20/18 21:14 Glucagon (Glucagon Inj) 1 mg UD PRN SQ 02/18/18 21:15 03/20/18 21:14 Vancomycin HCl 1750 mg/Sodium Chloride 535 ml @ 200 mls/hr Q16H IV 02/19/18 10:00 04/01/18 21:59 02/20/18 18:26 200 MLS/HR Insulin Aspart (novoLOG ASPART) SLIDING SCALE PARAMETER ACHS SC 02/19/18 21:00 03/21/18 00:00 02/20/18 21:07 5 UNITS Heparin Sodium (Porcine) (Heparin 10 Unit/ ml 5 ml Flush) 5 ml PRN PRN FLUSH 02/20/18 15:30 03/22/18 15:29 02/21/18 03:59 5 ML Objective Vital Signs Date Time Temp Pulse Resp B/P (MAP) Pulse Ox O2 Delivery O2 Flow Rate FiO2 02/21/18 07:06 36.6 63 18 154/67 (96) 97 Room Air 02/20/18 23:44 Room Air 02/20/18 22:53 36.8 63 18 136/77 (96) 95 Room Air 02/20/18 15:25 Room Air 02/20/18 15:08 36.5 64 16 131/79 (96) 98 Room Air Physical Exam General Appearance: WD/WN, no apparent distress ENT: hearing grossly normal Neck: supple Respiratory/Chest: lungs clear, normal breath sounds, no respiratory distress Cardiovascular: regular rate, rhythm Abdomen: normal bowel sounds, non tender, soft Neurologic/Psychiatric: alert, normal mood/affect, oriented x 3 Skin: normal color Laboratory Results Test 02/20/18 07:50 02/20/18 21:01 02/21/18 04:44 Est Creatinine Clear Calc Drug Dose 70.6 ml/min Chemistry Specimen Hemolysis Bedside Glucose 199 mg/dl (70-99) Assessment and Plan 72-year-old male with a past medical history of diabetic foot ulcer, coronary artery disease presented with confirmed osteomyelitis as evidenced by MRI of his right distal third toe. He underwent amputation of the affected toe Osteomyelitis of right foot distal third toe: As evidenced on MRI -Status post amputation of right third PIP joint level and metatarsophalangeal joint release, right third, postop day 1 -Blood cultures and wound cultures currently pending - Continue vancomycin and cefepime, PICC line placed - The patient will be required to be in a surgery shoe for minimal for 6 weeks Diabetes mellitus type 2: Continue Lantus with insulin sliding scale Coronary artery disease: - Continue metoprolol and amiodarone Diabetic neuropathy: Continue gabapentin Restless legs: -Continue Sinemet DVT prophylaxis -SCDs Full code Resident Physician Supervision Note: I interviewed and examined the patient. Discussed with Dr. Templeton and agree with findings and plan as documented in the note. Any exceptions or clarifications are listed here: None Documented By: Farhan Sidhu sitting up in chair, no significant pain, awaiting culture results vitals noted nad breathing unlabored foot osteomyelitis - post op day1 and IV abx continue, ongoing abx based on cultures, ID and podiatry input Resident Tracking Resident Involvement: Resident Care Provided Care Provided: Adult [facility] Medicine
[2018-02-20 15:08] VITALS: BP 131/79; PULSE 64; TEMP 36.5; O2SAT 98
[2018-02-20] MEDS: MoRPHine SULFATE 2 MG/ML CARP IV PRN (17:53)
[2018-02-20] MEDS: INSULIN GLARGINE SOLOSTAR 100 UNITS/ML 3 ML PEN SC SCH (21:08)
[2018-02-20 22:53] VITALS: BP 136/77; PULSE 63; TEMP 36.8; O2SAT 95
[2018-02-21] MEDS: CEFEPIME IV 2,000 MG in SYRINGE 7.5 ML IV SCH ×2 (03:59→12:48)
[2018-02-21] MEDS: OXYCODONE HCL IR 5 MG TAB (IMMEDIATE RELEASE) PO PRN (06:28)
[2018-02-21 07:06] VITALS: BP 154/67; PULSE 63; TEMP 36.6; O2SAT 97
[2018-02-21] MEDS: METOPROLOL SUCC 25MG EXT REL TAB PO SCH (09:03)
[2018-02-21] MEDS: ATORVASTATIN 40 MG TAB PO SCH (09:03)
[2018-02-21] MEDS: GABAPENTIN 400 MG CAP PO SCH ×2 (09:03→14:06)
[2018-02-21] MEDS: CARBIDOPA/LEVODOPA 25/100MG TAB PO SCH (09:04)
[2018-02-21] MEDS: AMIODARONE 200 MG TAB PO SCH (09:05)
[2018-02-21] MEDS: INSULIN ASPART 100 UNITS/ML 3 ML PEN SC SCH ×2 (09:10→12:57)
[2018-02-21] MEDS ORDERED: VANCOMYCIN TROUGH ONE (09:30)
[2018-02-21] MEDS: VANCOMYCIN IV 1,750 MG in SODIUM CHLORIDE 0.9% 500ML 500 ML IV SCH (09:47)
[2018-02-21 09:53] LABS: HEMATOCRIT 38.7 % (42-52); HEMOGLOBIN 13.2 g/dL (14.0-18.0); MEAN CELL VOLUME 87.8 fL (80-100); MEAN CORPUSCULAR HEMOGLOBIN 29.9 pg (25-34); MEAN CORPUSCULAR HGB CONC 34.1 g/dl (32-36); PLATELET COUNT 269 K/uL (130-400); RED CELL DISTRIBUTION WIDTH CV 13.6 % (11.5-14.5); RED CELL DISTRIBUTION WIDTH SD 43.9 fL (36.4-46.3); WHITE BLOOD COUNT 7.87 K/uL (4.8-10.8)
[2018-02-21] MEDS ORDERED: NURSING VERBAL MED ORDER ONE (10:15)
[2018-02-21 10:20] LABS: CALCIUM 8.4 mg/dl (8.5-10.1); CREATININE 1.29 mg/dl (0.60-1.40); POTASSIUM 3.9 mmol/L (3.5-5.1)
[2018-02-21] MEDS ORDERED: PrednisoLONE ACET 1% OP SUSP 5 ML BTL OPB SCH (12:00)
[2018-02-21] MEDS ORDERED: KETOROLAC 0.5% OP SOLN 3 ML BTL OPB SCH (12:00)
[2018-02-21 15:18] VITALS: BP 149/91; PULSE 71; TEMP 36.5; O2SAT 98
[2018-02-21 17:03] VITALS: BP 149/91; PULSE 71; TEMP 36.5; O2SAT 98
[2018-02-21] MEDS ORDERED: RXC5 PO ×2 (17:27)
[2018-02-21] MEDS ORDERED: CARB25TA2 PO ×2 (17:27)
[2018-02-21] MEDS ORDERED: TPRSR25 PO ×2 (17:27)
[2018-02-21] MEDS ORDERED: CRD200 PO ×2 (17:27)
[2018-02-21] MEDS ORDERED: NRN400 PO ×2 (17:27)
[2018-02-21] MEDS ORDERED: LPT40 PO ×2 (17:27)
[2018-02-21] MEDS ORDERED: INSDGIPEN SC ×2 (17:27)
--- NOTE | 2018-02-21 17:34 | Discharge Instructions ---
Discharge Instructions Date of Service Feb 21, 2018. Admission Reason for Admission: Right Third Toe Osteomyelitis Discharge Discharge Diagnosis / Problem: Osteomyelitis Discharge Goals Goal(s): Decrease discomfort, Improve function, Increase independence Activity Recommendations Activity Limitations: per Instructions/Follow-up section . Instructions / Follow-Up Instructions / Follow-Up You were admitted after you were found to have a bone infection in your 3rd right toe and you underwent an amputation that was performed by Dr. Le. You will need IV antibiotics for 6 weeks and had a PICC line placed for that purpose. You will need to get labwork done every week . Script is enclosed. - Continue daptomycin 6 mg/kg daily for 6 weeks - Get weekly BMP /labwork - You will be required to be in a surgery shoe for minimal for 6 weeks - You may use tylenol for pain along with oxycodone 10 mg every 6 hours as needed. make sure you dont take more than 3000 mg of tylenol in a day Diabetes mellitus type 2: Continue Lantus 25 units everynight with insulin sliding scale Coronary artery disease: - Continue metoprolol and amiodarone Diabetic neuropathy: Continue gabapentin Restless legs: -Continue Sinemet Please follow up with Dr. Le in the next week Follow up with Dr. Giles/infectious disease in 3-4 weeks Current Hospital Diet Patient's current hospital diet: Diabetes Type 2 Diet, AHA Diet (Heart Healthy) Discharge Diet Recommended Diet: Diabetes Type 2 Diet Procedures Procedures Performed: Amputation Right 3rd Digit Proximal Interphalangeal Joint Right Pending Studies Studies pending at discharge: yes List of pending studies: blood cultures Medical Emergencies . Who to Call and When: Medical Emergencies: If at any time you feel your situation is an emergency, please call 911 immediately. . Non-Emergent Contact Non-Emergency issues call your: Primary Care Provider . . "Provider Documentation" section prepared by Tash Templeton. . Resident Tracking Resident Involvement: Resident Care Provided Care Provided: Adult Hospital Medicine
--- NOTE | 2018-02-21 18:04 | Discharge Summary ---
Discharge Summary Date of Service Feb 21, 2018. Discharge Summary Admission Date: Feb 18, 2018 at 17:50 Discharge Date: Feb 21, 2018 Discharge Disposition: Home with services Principal Diagnosis: Osteomyelitis Problems/Secondary Diagnoses: Diabetic foot ulcer Consultations: Amputation of right third toe Medication Reconciliation New Medications: Amiodarone HCl (Amiodarone HCl) 200 Mg Tab 100 MG PO QAM for 30 Days, #15 TAB Atorvastatin (Lipitor) 40 Mg Tab 40 MG PO QAM for 30 Days, #30 TAB Carbidopa-Levodopa (Sinemet) 1 Tab Tab 1 TAB PO BID for 30 Days, #60 TAB Gabapentin (Gabapentin) 400 Mg Cap 400 MG PO TID for 30 Days, #90 CAP Insulin Glargine (Lantus Solostar) 100 Unit/Ml Inj 25 UNITS SC QPM for 30 Days Metoprolol Succinate (Metoprolol Succinate ER) 25 Mg Tabcr 25 MG PO QAM for 30 Days Oxycodone HCl (Oxycodone HCl) 5 Mg Tab 10 MG PO Q6 PRN for Pain, #20 TAB Discharge Exam Pain is well controlled. Denies any fevers or chills, numbness or tingling in the affected foot or worsening pain Review of Systems: Constitutional: No fever, No chills Eyes: No worsening of vision ENT: No hearing loss, No unusual epistaxis Respiratory: No cough Cardiovascular: No chest pain Abdomen: No pain, No nausea, No vomiting Musculoskeletal: No joint pain Genitourinary - Male: No hematuria Neurologic: No memory loss Psychiatric: No depression symptoms Endocrine: No fatigue Physical Exam: General Appearance: WD/WN, no apparent distress Eyes: normal inspection ENT: normal ENT inspection, hearing grossly normal Neck: supple Respiratory/Chest: lungs clear, normal breath sounds, no respiratory distress Cardiovascular: regular rate, rhythm Abdomen / GI: non tender, soft Extremities: no calf tenderness, no pedal edema, + pertinent finding (Right foot covered in dressing) Neurologic/Psychiatric: alert, normal mood/affect, oriented x 3 Skin: normal color Hospital Course 72-year-old male with a past medical history of diabetes type 2, diabetic neuropathy, diabetic foot ulcer, coronary artery disease presented as a direct admit from Dr. Le's office after he was found to have MRI evidence of osteomyelitis of his right great toe. He was started on vancomycin and cefepime and underwent amputation of the affected toe. Wound cultures from the affected toe revealed group B strep and coag negative Staphylococcus, blood cultures were obtained which are currently pending. Infectious disease was consulted and he was discharged after a PICC line was placed for a 6 week course of IV daptomycin daily. He will need CPK level to be drawn next week along with weekly BMPs. He was advised to use Tylenol/Percocet as needed for pain control and use of surgery shoe for ambulation. Recommended to follow-up with PCP in [address] Le in 1 week. follow-up with infectious disease/Dr. Giles in 3-4 weeks Resident Physician Supervision Note: I interviewed and examined the patient. Discussed with Dr. Templeton and agree with findings and plan as documented in the note. Any exceptions or clarifications are listed here: None Documented By: Farhan Sidhu feeling ok ready to go home ID input on IV abx appreciated, podiatry input appreciated vitals noted nad breathing unlabored foot osteomyelitis - post op and IV abx, ongoing abx and outpt ID, PCP, and podiatry f/u Total Time Spent: Less than 30 minutes This includes examination of the patient, discharge planning, medication reconciliation, and communication with other providers. Discharge Instructions Please refer to the electronic Patient Visit Report (Discharge Instructions) for additional information. Follow-Up Follow-up with PCP in 1 week, follow-up with podiatry in 1 week, follow-up with infectious disease in 3-4 weeks Additional Copies To Taniya Lucero D.O. Resident Tracking Resident Involvement: Resident Care Provided Care Provided: [facility]
[2018-02-21] MEDS ORDERED: DAPTOmycin IV 700 MG in SYRINGE 0 ML IV SCH (21:00)
--- NOTE | 2018-02-21 21:16 | PROGRESS NOTE ---
DATE: 02/21/2018 The patient is seen at bedside this morning noting mild amount of pain. Currently awaiting IV antibiotics. Recommended IV antibiotics for [address] Giles was consulted on the chart. Final results not on the chart. Depending on insurance coverage vancomycin, daptomycin and Rocephin. Would recommend antibiotics until April 02. To keep the dressing clean, dry and intact. Dressing was changed at bedside this morning. Erythema confined to the amputation site. Cultures showing group B beta strep, coagulase negative staph, corynebacterium. The patient will be followed in my office next week and will ambulate with surgery shoe.
[2018-02-24] MEDS ORDERED: KETOROLAC 0.5% OP SOLN 3 ML BTL OPL SCH (09:00)
[2018-02-24] MEDS ORDERED: PrednisoLONE ACET 1% OP SUSP 5 ML BTL OPL SCH (09:00)
== END 2018-02-21 18:00 | disposition home or self-care (01) | DRG 505 ==
LOC: C.MSW 17:50
PROVIDERS: ADMIT Internal Medicine; ATTEND Family Medicine
PROC: 0Y6T0Z0 Detachment at Right 3rd Toe, Complete, Open Approach (ICD-10-PCS; principal; 2018-02-18)
PROC: 05H933Z Insertion of Infusion Device into Right Brachial Vein, Percutaneous Approach (ICD-10-PCS; 2018-02-18)
DX: M86.9 Osteomyelitis, unspecified (principal); L97.509 Non-pressure chronic ulcer of other part of unspecified foot with unspecified severity; E11.69 Type 2 diabetes mellitus with other specified complication; Z88.3 Allergy status to other anti-infective agents; Z95.2 Presence of prosthetic heart valve; I10 Essential (primary) hypertension; G60.0 Hereditary motor and sensory neuropathy; Z87.891 Personal history of nicotine dependence

== ENCOUNTER → 2018-02-18 | Outpatient (CLI) | payer OTHER ==
[~2018-02-18] MED LIST: CARB25TA2 PO; CRD200 PO; GADAVIST IV PRN; INSDGIPEN SC; LPT40 PO; NRN400 PO; RXC5 PO; TPRSR25 PO
--- NOTE | 2018-02-18 14:26 | DIAGNOSTIC IMAGING REPORT ---
R LOWER EXT NONJOINT COMBO CLINICAL HISTORY: 72 years-old Male presenting with RT 3RD RT TOE, EVAL OSTEOMYELITIS. TECHNIQUE: Multisequence, multiplanar MR imaging of the right toes was performed before and after the administration of intravenous contrast. IV contrast: 11 mL of Gadavist. COMPARISON: None. FINDINGS: Localizer images: Unremarkable. Focal well-defined T2 hyperintense, T1 hypointense centrally nonenhancing lesion in the base of the first metatarsal consistent with a cyst, likely an intraosseous ganglion. Minimal surrounding overlying edema in the subchondral base of the first metatarsal. A linear T1 hypointense defect (series 4 image 20) may also be degenerative in etiology but does raise concern for a nondisplaced fracture. The third toe demonstrates osseous dissolution of the distal phalanx, which is T1 hypointense and T2 hyperintense. Surrounding soft tissue edema and hyperenhancement. Minimal bony edema at the head of the middle phalanx of the third toe without T1 hypointensity. The proximal phalanx of the third toe is completely normal. The remainder of the toes are also normal. Mild intramuscular edema noted diffusely. Extensive subcutaneous edema noted over the dorsum and dorsal lateral forefoot. IMPRESSION: 1. Findings consistent with osteomyelitis of the distal phalanx of the third toe with surrounding cellulitis. No convincing osteomyelitis of the middle phalanx of the third toe. 2. Intraosseous ganglion in the base of the first metatarsal. Questionable nondisplaced fracture associated with the base of the first metatarsal versus reactive degenerative change. The report will be called/faxed according to standard departmental protocol. Electronically signed by: Kiran Iyer M.D. 02/18/2018 2:24 PM Dictated Date/Time: 02/18/2018 2:17 PM
--- NOTE | 2018-03-05 06:29 | CODING QUERY NO DIAGNOSIS ---
TREATMENT RENDERED WITHOUT A DIAGNOSIS Dr. Kothari, To promote full compliance with coding requirements relating to patient care, physician participation is requested in all cases of homicide squad commanding officer uncertainty. Please assist us with providing a diagnosis/symptom for the test(s) below: A diagnosis/symptom was not documented on your Order. A valid diagnosis/symptom is required to bill all insurances. Please remember that we are unable to code a diagnosis of rule out, probable, possible, questionable, or suspected. Tests that require a diagnosis: * BEDSIDE GLUCOSE DIAGNOSIS: * CREATININE ISTAT DIAGNOSIS: * MRI LOWER EXT NONJOINT COMBO DIAGNOSIS: * GADAVIST PER 1 ML (11X) DIAGNOSIS: DATE OF SERVICE: 02/18/18 Provider Signature: Date: Thank you [facility] Information Management Once completed, please kindly fax back to [phone] For questions please call [phone]
== END | disposition home or self-care (01) ==
LOC: C.MRI 11:40
PROVIDERS: ATTEND Podiatrist Foot & Ankle Surgery
DX: M86.171 Other acute osteomyelitis, right ankle and foot (principal); L97.421 Non-pressure chronic ulcer of left heel and midfoot limited to breakdown of skin; L97.512 Non-pressure chronic ulcer of other part of right foot with fat layer exposed; M67.471 Ganglion, right ankle and foot

== ENCOUNTER 2018-02-22 20:05 | Emergency (ER) | payer OTHER ==
[~2018-02-22] VITALS: Ht 180.3 cm; Wt 118.0 kg
[~2018-02-22 20:05] MED LIST changes: -GADAVIST IV PRN
[2018-02-22 20:12] VITALS: Ht 180.3 cm; Wt 118.0 kg
--- NOTE | 2018-02-22 21:21 | DIAGNOSTIC IMAGING REPORT ---
CHEST ONE VIEW PORTABLE CLINICAL HISTORY: eval PICC line tube position COMPARISON STUDY: No previous studies for comparison. FINDINGS: Right-sided PICC catheter placed within the proximal superior vena cava. No evidence pneumothorax. Lungs are considered clear. Prior median sternotomy. IMPRESSION: PICC catheter placed in the proximal superior cava. No evidence for pneumothorax. The above report was generated using voice recognition software. It may contain grammatical, syntax or spelling errors. Electronically signed by: Ben Alarcon M.D. 02/22/2018 9:19 PM Dictated Date/Time: 02/22/2018 9:18 PM
[2018-02-22 21:40] VITALS: BP 131/91; PULSE 72; TEMP 36.9; O2SAT 98
--- NOTE | 2018-02-23 00:59 | EMERGENCY ROOM VISIT NOTE ---
History Report prepared by Brandi: Alexys Lua Under the Supervision of: Dr. Trevon Ledbetter M.D. First contact with patient: 20:16 Chief Complaint: PICC LINE CLOTTED Stated Complaint: PICC LINE CLOGGED History of Present Illness The patient is a 72 year old male who presents to the Emergency Room with complaints of a persistent PICC line blockage that started earlier today. He states that he was discharged from the hospital yesterday after a toe amputation. The patient says that his PICC line is in his right arm, and his last dose of antibiotic was yesterday. He notes that he was not due to have his antibiotic until around 3 hours ago, but his home nurse noted that the PICC line was clotted at that time. The patient denies any fevers, chest pain, or shortness of breath. He stated the home health nurse was unable to flush the line. Source of History: patient Onset: Earlier today Position: arm (right) Symptom Intensity: clotted - could not receive antibiotic Quality: other (PICC line blockage) Timing: other (persistent) Associated Symptoms: No fevers, No chest pain, No SOB Review of Systems See HPI for pertinent positives & negatives. A total of 10 systems reviewed and were otherwise negative. Past Medical & Surgical Medical Problems: (1) Diabetic foot infection (2) HTN (hypertension) Family History Family history omitted secondary to patient's advanced age. Social History Smoking Status: Former Smoker Drug Use: none Marital Status: Housing Status: lives with family Occupation Status: retired Current/Historical Medications Scheduled Amiodarone HCl (Amiodarone HCl), 100 MG PO QAM Atorvastatin (Lipitor), 40 MG PO QAM Carbidopa-Levodopa (Sinemet), 1 TAB PO BID Gabapentin (Gabapentin), 400 MG PO TID Insulin Glargine (Lantus Solostar), 25 UNITS SC QPM Metoprolol Succinate (Metoprolol Succinate ER), 25 MG PO QAM Scheduled PRN Oxycodone HCl (Oxycodone HCl), 10 MG PO Q6 PRN for Pain Allergies Coded Allergies: No Known Allergies (Unverified , 02/22/18) Physical Exam Vital Signs Date Time Temp Pulse Resp B/P (MAP) Pulse Ox O2 Delivery O2 Flow Rate FiO2 02/22/18 21:40 36.9 72 20 131/91 98 02/22/18 20:12 36.7 86 18 139/95 97 Room Air Physical Exam Constitutional: Vital signs reviewed. Eyes: Pupils are equal round reactive to light. Conjunctiva are noninjected. ENT: Pharynx is clear without erythema or exudate. Mucous membranes are moist. Neck supple without meningeal signs. Respiratory: Clear to auscultation bilaterally. Breath sounds are equal bilaterally. Cardiovascular: Regular rate and rhythm. No rubs or gallops. GI: Soft, nondistended and nontender. Bowel sounds are present. Musculoskeletal: PICC line in right upper extremity which is in place, no signs of infection or displacement. Right foot in a post-op shoe. Neurological: The patient is awake and alert. No focal deficits. Psychiatric: Normal affect. Medical Decision & Procedures ER Provider Diagnostic Interpretation: X-ray results as stated below per interpretation by me and the radiologist: CHEST ONE VIEW PORTABLE CLINICAL HISTORY: eval PICC line tube position COMPARISON STUDY: No previous studies for comparison. FINDINGS: Right-sided PICC catheter placed within the proximal superior vena cava. No evidence pneumothorax. Lungs are considered clear. Prior median sternotomy. IMPRESSION: PICC catheter placed in the proximal superior cava. No evidence for pneumothorax. The above report was generated using voice recognition software. It may contain grammatical, syntax or spelling errors. Electronically signed by: Ben Alarcon M.D. 02/22/2018 9:19 PM Dictated Date/Time: 02/22/2018 9:18 PM ED Course 2017: The patient was evaluated in room A11B. A complete history and physical exam was performed. 2115: I reevaluated the patient and talked to him about the x-ray. We are waiting for the radiologist to read it. 2125: Upon reevaluation, the patient appeared to be resting comfortably. I discussed tonight's findings with him. He verbalized agreement of the treatment plan. He was discharged home. Medical Decision This is a 72-year-old male who presents with a nonfunctioning PICC line. Differential diagnosis and includes occlusion, displacement, fracture. I did perform a limited focused review of portions of the patient's old chart on the electronic medical record. The patient was admitted for osteomyelitis of foot. I did evaluate the patient as noted above. Patient is asymptomatic. His PICC line appears to be in place. There is no sign of infection. I did order and personally review the patient's chest x-ray as described above. The PICC line is in place. I did have the IV team evaluate PICC line. They were able to flush the line. The patient did not have any symptoms after they flushed the line. He was given his dose of antibiotics and discharged in good condition. Medication Reconcilliation Current Medication List: was personally reviewed by me Blood Pressure Screening Patient's blood pressure: Elevated blood pressure Impression Primary Impression: Occluded PICC line Scribe Attestation The scribe's documentation has been prepared under my direct and personally reviewed by me in its entirety. I confirm that the note above accurately reflects all work, treatment, procedures, and medical decision making performed by me. Departure Information Dispostion Home / Self-Care Referrals Taniya Lucero D.O. (PCP) Forms HOME CARE DOCUMENTATION FORM, IMPORTANT VISIT INFORMATION, WORK / SCHOOL INSTRUCTIONS Patient Instructions My [facility], PICC Care Dc Additional Instructions You have been examined and treated today on an emergency basis only. This is not a substitute for, or an effort to provide, complete comprehensive medical care. It is impossible to recognize and treat all injuries or illnesses in a single emergency department visit. It is therefore important that you follow up closely with your physician. Call as soon as possible for an appointment. Return for worsening symptoms or if you develop fever, vomiting, chest pain, shortness of breath or any other concerning symptoms. Problem Qualifiers Primary Impression: Occluded PICC line Encounter type: initial encounter Qualified Codes: T82.898A - Other specified complication of vascular prosthetic devices, implants and grafts, initial encounter
== END 2018-02-22 21:43 | disposition home or self-care (01) ==
LOC: C.EDB 20:06 → C.EDA 21:43
DX: T82.898A Other specified complication of vascular prosthetic devices, implants and grafts, initial encounter (principal); X58.XXXA Exposure to other specified factors, initial encounter; I10 Essential (primary) hypertension; Z87.891 Personal history of nicotine dependence